=== PATIENT | male | born 1935 | race Caucasian/White ===

== ENCOUNTER → 2023-09-27 09:49 | Outpatient (REF) | payer MEDICARE, OTHER, SELFPAY ==
[2023-09-27 11:50] LABS: % Basophils 0.5 % (0-2); % Eosinophils 3.6 % (0-6); % Immature Granulocytes 0.4 % (0-0.5); % Lymphocytes 28.8 % (20.5-51.1); % Neutrophils 59.7 % (42.2-75.2); Absolute Eosinophils 0.3 10^3/uL (0-0.7); Absolute Lymphocytes 2.3 10^3/uL (1.2-3.4); Absolute Monocytes 0.6 10^3/uL (0.1-0.6); Absolute Neutrophils 4.8 10^3/uL (1.4-6.5); Hematocrit 31.7 % (39.0-52.0); Hemoglobin 10.6 g/dL (13.0-18.0); Mean Corp Hgb Conc. 33.4 g/dL (33.0-37.0); Mean Corpuscular Hgb 30.5 pg (27.0-31.0); Mean Corpuscular Volume 91.1 fL (80.0-94.0); Mean Platelet Volume 10.4 fL (7.4-10.4); Nucleated Red Blood Cells % 0 % (-); Platelet Count 280 10^3/uL (130-400); Red Blood Cell Count 3.48 10^6/uL (4.70-6.10); Red Cell Dist. Width 13.3 % (11.5-14.5); White Blood Cell Count 8.1 10^3/uL (4.8-10.8)
[2023-09-27 12:11] LABS: ALT (SGPT) 43 U/L (0-50); AST (SGOT) 33 U/L (17-59); Albumin 3.8 g/dl (3.5-5.0); Alkaline Phosphatase 118 U/L (38-126); Blood Urea Nitrogen 28 mg/dl (9-20); Carbon Dioxide 23 mmol/L (22-30); Chloride 107 mmol/L (98-107); Glucose 137 mg/dl (70-99); HDL Cholesterol 31 mg/dl; Iron 61 ug/dl (49-181); LDL Cholesterol, Calculated 42 mg/dl; Potassium 4.7 mmol/L (3.5-5.1); Sodium 139 mmol/L (135-145); Total Bilirubin 0.5 mg/dl (0.2-1.3); Total Cholesterol 103 mg/dl (50-199); Total Protein 6.6 g/dl (6.3-8.2); Triglyceride 150 mg/dl (10-149); Very Low Density Lipoprotein 30 mg/dl (0-30); eGFR 58.53
[2023-09-27 12:20] LABS: Percent Saturation 20 % (20-50); Total Iron Binding Capacity 295 ug/dl (261-462)
[2023-09-27 12:43] LABS: Ferritin 82.1 ng/ml (17.9-464.0)
== END ==
LOC: HWLAB 09:49
PROVIDERS: ATTENDING PHYSICIAN Internal Medicine Cardiovascular Disease; FAMILY PHYSICIAN Internal Medicine
DX: I25.10 Atherosclerotic heart disease of native coronary artery without angina pectoris (principal); N18.32 Chronic kidney disease, stage 3b; E78.49 Other hyperlipidemia; E11.22 Type 2 diabetes mellitus with diabetic chronic kidney disease
CPT/HCPCS: 36415; 80053; 80061; 82728; 83036; 83540; 83550; 85025

== ENCOUNTER → 2024-02-06 10:13 | Outpatient (REF) | payer MEDICARE, OTHER, SELFPAY ==
[2024-02-06 12:09] LABS: % Basophils 0.7 % (0-2); % Eosinophils 5.2 % (0-6); % Immature Granulocytes 0.2 % (0-0.5); % Lymphocytes 25.7 % (20.5-51.1); % Monocytes 6.6 % (1.7-9.3); % Neutrophils 61.6 % (42.2-75.2); Absolute Basophils 0.1 10^3/uL (0-0.2); Absolute Eosinophils 0.5 10^3/uL (0-0.7); Absolute Lymphocytes 2.3 10^3/uL (1.2-3.4); Absolute Monocytes 0.6 10^3/uL (0.1-0.6); Absolute Neutrophils 5.6 10^3/uL (1.4-6.5); Hemoglobin 10.3 g/dL (13.0-18.0); Mean Corp Hgb Conc. 33.2 g/dL (33.0-37.0); Mean Corpuscular Hgb 30.5 pg (27.0-31.0); Mean Corpuscular Volume 91.7 fL (80.0-94.0); Mean Platelet Volume 11.1 fL (7.4-10.4); Nucleated Red Blood Cells % 0 % (-); Platelet Count 273 10^3/uL (130-400); Red Blood Cell Count 3.38 10^6/uL (4.70-6.10); Red Cell Dist. Width 13.1 % (11.5-14.5); White Blood Cell Count 9.1 10^3/uL (4.8-10.8)
[2024-02-06 12:41] LABS: Glycohemoglobin (HgbA1c) 6.6 % (4.0-5.6)
[2024-02-06 13:13] LABS: ALT (SGPT) 20 U/L (0-50); AST (SGOT) 24 U/L (17-59); Albumin 3.9 g/dl (3.5-5.0); Alkaline Phosphatase 127 U/L (38-126); Blood Urea Nitrogen 43 mg/dl (9-20); Calcium 9.3 mg/dl (8.4-10.2); Carbon Dioxide 19 mmol/L (22-30); Chloride 110 mmol/L (98-107); Glucose 133 mg/dl (70-99); Potassium 5.7 mmol/L (3.5-5.1); Sodium 136 mmol/L (135-145); Total Bilirubin 0.6 mg/dl (0.2-1.3); Total Protein 6.4 g/dl (6.3-8.2); eGFR 48.34
[2024-02-06 14:42] LABS: Microalbumin, Random Urine 0.8 mg/dl (0.6-1.7); Microalbumin/creatinine Ratio 8.3 mg/g
== END ==
LOC: HWLAB 10:13
PROVIDERS: ATTENDING PHYSICIAN Internal Medicine
DX: I25.10 Atherosclerotic heart disease of native coronary artery without angina pectoris (principal); E11.22 Type 2 diabetes mellitus with diabetic chronic kidney disease; N18.32 Chronic kidney disease, stage 3b; D64.9 Anemia, unspecified
CPT/HCPCS: 36415; 80053; 82043; 82570; 83036; 85025

== ENCOUNTER → 2024-02-17 11:30 | Outpatient (REF) | payer MEDICARE, OTHER, SELFPAY ==
[2024-02-17 17:03] LABS: Blood Urea Nitrogen 43 mg/dl (9-20); Calcium 9.3 mg/dl (8.4-10.2); Carbon Dioxide 20 mmol/L (22-30); Chloride 107 mmol/L (98-107); Glucose 150 mg/dl (70-99); Potassium 5.5 mmol/L (3.5-5.1); Sodium 136 mmol/L (135-145)
== END ==
LOC: HWLAB 11:30
PROVIDERS: ATTENDING PHYSICIAN Internal Medicine
DX: E87.5 Hyperkalemia (principal)
CPT/HCPCS: 36415; 80048

== ENCOUNTER → 2024-03-17 12:02 | Outpatient (REF) | payer MEDICARE, OTHER, SELFPAY ==
[2024-03-17 16:51] LABS: Blood Urea Nitrogen 43 mg/dl (9-20); Calcium 9.4 mg/dl (8.4-10.2); Carbon Dioxide 20 mmol/L (22-30); Chloride 107 mmol/L (98-107); Glucose 122 mg/dl (70-99); Potassium 5.1 mmol/L (3.5-5.1); Sodium 140 mmol/L (135-145); eGFR 52.84
== END ==
LOC: HWLAB 12:02
PROVIDERS: ATTENDING PHYSICIAN Internal Medicine; REFERRING PHYSICIAN Internal Medicine Cardiovascular Disease
DX: E87.5 Hyperkalemia (principal)
CPT/HCPCS: 36415; 80048

== ENCOUNTER → 2024-06-16 07:39 | Outpatient (REF) | payer MEDICARE, OTHER, SELFPAY | LOC: RAD 07:39 | PROVIDERS: ATTENDING PHYSICIAN Podiatrist; FAMILY PHYSICIAN Internal Medicine | DX: E11.9 Type 2 diabetes mellitus without complications (principal); E11.42 Type 2 diabetes mellitus with diabetic polyneuropathy; I70.91 Generalized atherosclerosis; I87.2 Venous insufficiency (chronic) (peripheral); R25.2 Cramp and spasm | CPT/HCPCS: 93922 ==

== ENCOUNTER → 2024-07-22 14:46 | Outpatient (REF) | payer MEDICARE, OTHER, SELFPAY | LOC: HWRAD 14:46 | PROVIDERS: ATTENDING PHYSICIAN Internal Medicine | DX: R29.898 Other symptoms and signs involving the musculoskeletal system (principal) | CPT/HCPCS: 72100 ==

== ENCOUNTER → 2024-08-05 09:33 | Outpatient (REF) | payer MEDICARE, OTHER, SELFPAY ==
[2024-08-05 11:13] LABS: % Basophils 0.5 % (0-2); % Eosinophils 6.9 % (0-6); % Immature Granulocytes 0.2 % (0-0.5); % Lymphocytes 36.8 % (20.5-51.1); % Monocytes 7.9 % (1.7-9.3); % Neutrophils 47.7 % (42.2-75.2); Absolute Eosinophils 0.6 10^3/uL (0-0.7); Absolute Lymphocytes 3.2 10^3/uL (1.2-3.4); Absolute Monocytes 0.7 10^3/uL (0.1-0.6); Absolute Neutrophils 4.1 10^3/uL (1.4-6.5); Hematocrit 34.2 % (39.0-52.0); Mean Corp Hgb Conc. 32.2 g/dL (33.0-37.0); Mean Corpuscular Hgb 30.4 pg (27.0-31.0); Mean Corpuscular Volume 94.5 fL (80.0-94.0); Mean Platelet Volume 10.7 fL (7.4-10.4); Nucleated Red Blood Cells % 0 % (-); Platelet Count 238 10^3/uL (130-400); Red Blood Cell Count 3.62 10^6/uL (4.70-6.10); White Blood Cell Count 8.7 10^3/uL (4.8-10.8)
[2024-08-05 11:51] LABS: ALT (SGPT) 16 U/L (0-50); AST (SGOT) 22 U/L (17-59); Albumin 4.2 g/dl (3.5-5.0); Alkaline Phosphatase 116 U/L (38-126); Blood Urea Nitrogen 37 mg/dl (9-20); Calcium 8.9 mg/dl (8.4-10.2); Carbon Dioxide 22 mmol/L (22-30); Chloride 106 mmol/L (98-107); Creatine Phosphokinase 47 U/L (55-170); Glucose 113 mg/dl (70-99); Potassium 5.5 mmol/L (3.5-5.1); Sodium 139 mmol/L (135-145); Total Bilirubin 0.6 mg/dl (0.2-1.3); Total Protein 6.9 g/dl (6.3-8.2); eGFR 41.19
[2024-08-05 12:05] LABS: Glycohemoglobin (HgbA1c) 6.5 % (4.0-5.6)
[2024-08-07 18:59] LABS: Aldolase 3.7 U/L (1.2-7.6)
== END ==
LOC: HWLAB 09:33
PROVIDERS: ATTENDING PHYSICIAN Internal Medicine
DX: I25.10 Atherosclerotic heart disease of native coronary artery without angina pectoris (principal); E11.22 Type 2 diabetes mellitus with diabetic chronic kidney disease; N18.32 Chronic kidney disease, stage 3b; D64.9 Anemia, unspecified; R29.898 Other symptoms and signs involving the musculoskeletal system
CPT/HCPCS: 36415; 80053; 82085; 82550; 83036; 85025

== ENCOUNTER → 2024-08-19 11:30 | Outpatient (REF) | payer MEDICARE, OTHER, SELFPAY ==
[2024-08-19 17:07] LABS: Potassium 5.6 mmol/L (3.5-5.1)
== END ==
LOC: HWLAB 11:30
PROVIDERS: ATTENDING PHYSICIAN Internal Medicine
DX: E87.5 Hyperkalemia (principal)
CPT/HCPCS: 36415; 84132

== ENCOUNTER → 2024-08-24 14:38 | Outpatient (REF) | payer MEDICARE, OTHER, SELFPAY | LOC: MRI 3T 14:38 | PROVIDERS: ATTENDING PHYSICIAN Physical Medicine & Rehabilitation; FAMILY PHYSICIAN Internal Medicine | DX: M54.16 Radiculopathy, lumbar region (principal) | CPT/HCPCS: 72148 ==

== ENCOUNTER → 2024-09-11 10:42 | Outpatient (REF) | payer MEDICARE, OTHER, SELFPAY ==
[2024-09-11 16:02] LABS: Blood Urea Nitrogen 30 mg/dl (9-20); Calcium 9.3 mg/dl (8.4-10.2); Carbon Dioxide 26 mmol/L (22-30); Chloride 104 mmol/L (98-107); Glucose 143 mg/dl (70-99); Potassium 4.8 mmol/L (3.5-5.1); Sodium 137 mmol/L (135-145); eGFR 48.34
== END ==
LOC: HWLAB 10:42
PROVIDERS: ATTENDING PHYSICIAN Internal Medicine
DX: E87.5 Hyperkalemia (principal)
CPT/HCPCS: 36415; 80048

== ENCOUNTER → 2024-10-06 11:09 | Outpatient (REF) | payer MEDICARE, OTHER, SELFPAY ==
[2024-10-06 13:13] LABS: Blood Urea Nitrogen 35 mg/dl (9-20); Calcium 9.3 mg/dl (8.4-10.2); Carbon Dioxide 25 mmol/L (22-30); Chloride 107 mmol/L (98-107); Glucose 165 mg/dl (70-99); Sodium 143 mmol/L (135-145); eGFR 48.04
== END ==
LOC: HWLAB 11:09
PROVIDERS: ATTENDING PHYSICIAN Internal Medicine
DX: I10 Essential (primary) hypertension (principal)
CPT/HCPCS: 36415; 80048

== ENCOUNTER → 2024-12-21 13:20 | Outpatient (REF) | payer MEDICARE, OTHER, SELFPAY | LOC: RCS 13:20 | PROVIDERS: ATTENDING PHYSICIAN Internal Medicine Cardiovascular Disease; FAMILY PHYSICIAN Internal Medicine | DX: I25.10 Atherosclerotic heart disease of native coronary artery without angina pectoris (principal); R00.1 Bradycardia, unspecified | CPT/HCPCS: 93225; 93226 ==

== ENCOUNTER → 2025-01-18 10:46 | Outpatient (REF) | payer MEDICARE, OTHER, SELFPAY ==
[2025-01-18 15:26] LABS: Hematocrit 36.4 % (39.0-52.0); Hemoglobin 12.1 g/dL (13.0-18.0); Mean Corp Hgb Conc. 33.2 g/dL (33.0-37.0); Mean Corpuscular Volume 90.8 fL (80.0-94.0); Nucleated Red Blood Cells % 0 % (-); Platelet Count 222 10^3/uL (130-400); Red Cell Dist. Width 14.1 % (11.5-14.5)
[2025-01-18 15:31] LABS: ALT (SGPT) 20 U/L (0-50); AST (SGOT) 22 U/L (17-59); Albumin 4.3 g/dl (3.5-5.0); Alkaline Phosphatase 106 U/L (38-126); Blood Urea Nitrogen 34 mg/dl (9-20); Calcium 9.1 mg/dl (8.4-10.2); Carbon Dioxide 22 mmol/L (22-30); Chloride 107 mmol/L (98-107); Glucose 138 mg/dl (70-99); HDL Cholesterol 40 mg/dl; LDL Cholesterol, Calculated 70 mg/dl; Potassium 4.6 mmol/L (3.5-5.1); Sodium 137 mmol/L (135-145); Total Protein 7.0 g/dl (6.3-8.2); Very Low Density Lipoprotein 35 mg/dl (0-30); eGFR 57.81
[2025-01-18 15:40] LABS: Microalb - Urine Creatinine 89.100 mg/dl
[2025-01-18 15:46] LABS: Microalbumin, Random Urine 8.1 mg/dl (0.6-1.7)
[2025-01-19 08:25] LABS: Glycohemoglobin (HgbA1c) 7.2 % (4.0-5.6)
== END ==
LOC: HWLAB 10:46
PROVIDERS: ATTENDING PHYSICIAN Internal Medicine
DX: I25.10 Atherosclerotic heart disease of native coronary artery without angina pectoris (principal); E11.22 Type 2 diabetes mellitus with diabetic chronic kidney disease; N18.32 Chronic kidney disease, stage 3b; D64.9 Anemia, unspecified; Z68.30 Body mass index [BMI] 30.0-30.9, adult; E78.2 Mixed hyperlipidemia; I10 Essential (primary) hypertension
CPT/HCPCS: 36415; 80053; 80061; 82043; 82570; 83036; 85025

== ENCOUNTER → 2025-01-25 07:48 | Outpatient (REF) | payer MEDICARE, OTHER, SELFPAY ==
[2025-01-25 10:23] LABS: C-Reactive Protein < 5.00 mg/L (0.0-10.00)
[2025-01-28 23:53] LABS: Calprotectin, Fecal 368 ug/g (<=49)
== END ==
LOC: REG 07:48
PROVIDERS: ATTENDING PHYSICIAN Internal Medicine Gastroenterology; FAMILY PHYSICIAN Family Medicine
DX: B99.9 Unspecified infectious disease (principal); A09 Infectious gastroenteritis and colitis, unspecified
CPT/HCPCS: 36415; 83993; 86140; 87045; 87046; 87324; 87328; 87329; 87427; 87449; 89055

== ENCOUNTER 2025-03-05 17:47 | Inpatient (IN) | payer MEDICARE, OTHER, SELFPAY ==
[2025-03-05 12:29] VITALS: BP 145/67
--- NOTE | 2025-03-05 14:34 | ED.GENMED ---
History of Present Illness
General
Chief Complaint: Skin Problem
Source: patient and family
Exam Limitations: none
Time Seen by Provider: 03/05/25 14:17
Nursing documentation reviewed up to this point in time: agreed with
History of Present Illness
History of Present Illness:
Note:
CHIEF COMPLAINT(S)
Persistent illness with vomiting and suspected cellulitis.
HISTORY OF PRESENT ILLNESS
The patient is an 89-year-old male who began experiencing symptoms of an illness approximately three days ago, which included vomiting a few nights ago. The patient did not feel well subsequently. His condition was visually documented by a family
member, who is a Physician Lithographic Printing Machinist, and they advised that he seek medical attention. The patient presented with a fever, recorded at 101.3�F this morning at the doctors office. He also experienced chills. There is a noted history of a form of
colitis, for which he is undergoing treatment with what was described as 'Foodishol.'
ADDITIONAL HISTORY OBTAINED FROM SOURCES OTHER THAN THE PATIENT
The patient�s daughter reported that a family member, who is a Physician Lithographic Printing Machinist, observed the patients condition and recommended medical assessment. She also provided information regarding his recent symptoms and fever.
SOCIAL HISTORY
The patient is with his and daughter.
MEDICATIONS
The patient is currently on medication for a form of colitis.
ALLERGIES
The patient has no known allergies.
PHYSICAL EXAM
General: Alert, no acute distress.
Skin: Warm, dry.
Head: Normocephalic, atraumatic.
Neck: Supple, trachea midline.
Eye, Ears, Nose, and Throat: Oral mucosa moist.
Cardiovascular: Normal peripheral perfusion, No edema.
Respiratory: Respirations are non-labored.
Gastrointestinal: Abdomen nondistended
Back: Normal range of motion, Normal alignment.
Musculoskeletal: Normal range of motion, normal strength.
Neurological: Alert and oriented to person, place, time, and situation, No focal neurological deficit observed.
Psychiatric: Cooperative, appropriate mood & affect.
Skin: LLE cellulitis, normal pulses
PROBLEM LIST
Acute: Vomiting, fever, cellulitis.
Chronic: Form of colitis.
PLAN
1. Evaluation with ultrasound to rule out blood clot presence.
2. Perform blood tests and cultures to identify any infection.
3. Administer intravenous antibiotics due to fever and possible ongoing infection.
4. Hospital admission for further management and observation.
DIFFERENTIAL DIAGNOSIS
The Differential Diagnosis includes, in no particular order and is not limited to:
1. Viral or bacterial cellulitis
2. Non-specific viral gastroenteritis
3. Medication-induced gastritis or colitis
4. Bacterial colitis
5. Clostridioides difficile infection
6. Urinary tract infection
7. Community-acquired pneumonia
8. Pulmonary embolism
9. Sepsis
10. Dehydration-related illness
CARE-UPDATE
03/05/25 - 18:43
The patient, an 8-1-feix-old male, continues to present with left lower leg cellulitis and fever. Laboratory findings show leukocytosis. The patient has been administered IV macamycin and admitted to the hospital for further management. Close
monitoring for response to IV antibiotics and any signs of progression or complications is advised.
Disposition:
SUMMARY OF ENCOUNTER
The patient, an 89-year-old male, presented to the emergency department with symptoms of fever and suspected cellulitis in the left lower leg. He was experiencing persistent illness and vomiting over the past few days. The patient was managed with
intravenous antibiotics, specifically vancomycin, due to fever and ongoing infection. Given the patients age and symptoms, hospitalization was deemed necessary for further management and observation.
DISPOSITION
Admit
ASSESSMENT
Suspected cellulitis of the left lower leg with leukocytosis, requiring intravenous antibiotics and hospital admission for further observation and management.
EMERGENCY TREATMENTS ADMINISTERED
Intravenous vancomycin was administered to the patient due to evidence of infection and the presence of leukocytosis.
PLAN
1. Continue intravenous antibiotics to address infection.
2. Monitor vital signs and symptoms closely to evaluate response to treatment.
3. Evaluate further through hospital admission for observation and additional testing as needed for comprehensive care.
INDEPENDENT REVIEW OF LABS AND INTERPRETATION OF TESTS
My independent review of CBC indicates leukocytosis.
MEDICATION RECONCILIATION
Administered intravenous vancomycin.
MEDICAL DECISION MAKING
- Number and Complexity of Problems Addressed: Chronic conditions affecting care include a form of colitis. Differential diagnosis included viral or bacterial cellulitis, non-specific viral gastroenteritis, medication-induced gastritis or colitis,
bacterial colitis, Clostridioides difficile infection, urinary tract infection, community-acquired pneumonia, pulmonary embolism, sepsis, and dehydration-related illness.
- Data:
Category 1: Laboratory tests ordered included CBC showing leukocytosis.
Category 2: Clinical information obtained from an independent historian, including family input from a Physician Lithographic Printing Machinist relative.
- Risk: Decided on hospital admission due to the risk of complications and morbidity from suspected cellulitis and ongoing infection.
DIAGNOSIS
1. Cellulitis, left lower leg (L03.116)
2. Leukocytosis (D72.829)
Past History
Past History
ED Past Medical History: HTN
ED Past Surgical History: None
Social History
Tobacco: Non-smoker
Alcohol: None
Phy Exam
Physical Exam
Physical Exam:
.
Course
Orders/Labs/Results
Orders:
Orders
03/05/25 14:31
IV Insert/Care/Rem.- Treatment PRN
03/05/25 14:35
US Periph Venous LOWER Ext LT Urgent
Comment:
Reason For Exam: left leg swelling, cellulitis
03/05/25 Dinner
2000 calorie (17 carb) Diabetic
At Your Request: Full Participation
Does patient need a safe tray?: No
03/05/25 15:32
Complete Blood Count/With Diff Urgent
Lactic Acid Q4H
Comment: CANCEL 2nd LACTIC ACID IF 1st LACTIC ACID IS LESS THAN 2
Blood Culture Q30M
BETINA Source: Blood/Venous
Specimen Description:
03/05/25 16:03
Vancomycin [Vancocin] 2,000 mg 0.9% Sodium Chloride 500 ml [Nss] 500 ml IV NOW
03/05/25 16:50
Comprehensive Metabolic Panel Urgent
Blood Culture Q30M
BETINA Source: Blood/Venous
Specimen Description:
03/05/25 17:14
ECG [Electrocardiogram (*1)] Urgent
Reason for Study: Fatigue / Weakness
03/05/25 17:16
Admit/Transfer Patient As Directed
Co-Sign Provider:
Level of Care: Inpatient admission
Assign to:: Medical/Surgical
Physician / Group: [facility]
Diagnosis: LLE Cellulitis
Reason for Hospitalization: IV abx
Expected length of stay greater than two midnights?: Yes
ELOS- Estimated Length of Stay in days: 3
I certify the patient meets the requirements for IP care: Yes
03/05/25 17:18
Code Status As Directed
Resuscitation Status: Do not resuscitate
Reached after discussion with pt or family/Healthcare POA: Yes
DNR Bracelet Application ONCE
03/05/25 17:45
0.9% Sodium Chloride 1000 ml [Nss] 1,000 ml IV 80 mls/hr
03/05/25 18:31
Dextrose 50%-Water [Dextrose 50% Syringe] 12.5 grams IV [id number] PRN
Glucagon [GlucaGen] 1 mg IM PRN PRN
Melatonin 10 mg PO HSPRN PRN SLEEP
03/05/25 18:31
WOUND/OSTOMY CONSULT Routine
Reason for Consult: LLE Wound
Bedside Glucose Monitoring As Directed
Frequency: AC&HS
Additional Instructions:: Change to q6h if pt on TPN, tube feeding or not eating
Vital Signs As Directed
Frequency: Per unit guidelines
DX Deep Vein Thrombosis Video Routine
03/05/25 19:00
CeFAZolin 2 GRAM [Ancef] 2 grams in 10 ml IV Q8H
03/05/25 20:00
Tolterodine Tartrate [Detrol] 1 mg PO BID
03/05/25 22:00
Mirtazapine [Remeron] 15 mg PO HS
03/06/25 00:00
Heparin 5,000 units SC Q8
03/06/25 06:00
Basic Metabolic Panel IN AM
Complete Blood Count/No Diff IN AM
Glycohemoglobin (HgbA1c) IN AM
03/06/25 07:30
Insulin Aspart Corrective Low [Novolog Flexpen-Low Resistance] See Protocol SC AC
03/06/25 08:00
Aspirin Low Dose EC [Aspir Low (Enteric Coated)] 81 mg PO DAILY
Atorvastatin [Lipitor] 40 mg PO DAILY
Budesonide [Entocort EC] 3 mg PO DAILY
nifedipine 30 mg PO DAILY
Abnormal Lab Results
03/05/25 03/05/25 03/05/25
15:32 15:37 16:50
WBC 21.0 H 10^3/uL
(4.8-10.8)
RBC 3.79 L 10^6/uL
(4.70-6.10)
Hgb 11.4 L g/dL
(13.0-18.0)
Hct 33.5 L %
(39.0-52.0)
Abs Immat Gran (auto) 0.2 H 10^3/uL
(0-0.05)
Absolute Neuts (auto) 17.7 H 10^3/uL
(1.4-6.5)
Absolute Monos (auto) 1.2 H 10^3/uL
(0.1-0.6)
Immature Gran % 0.8 H %
(0-0.5)
Neutrophils % 83.9 H %
(42.2-75.2)
Lymphocytes % 9.2 L %
(20.5-51.1)
Sodium 132 L mmol/L
(135-145)
BUN 47 H mg/dl
(9-20)
Creatinine 1.7 H mg/dL
(0.7-1.3)
Glucose 198 H mg/dl
(70-99)
POC Glucose 212 H mg/dl
(70-99)
03/05/25 15:32
03/05/25 16:50
Vital Signs
Initial and Last Documented VS:
Initial Vital Signs
Temp Pulse Resp BP Pulse Ox
99.6 F 83 20 145/67 94
03/05/25 12:29 03/05/25 12:29 03/05/25 12:29 03/05/25 12:29 03/05/25 12:29
Last Documented Vital Signs
Temp Pulse Resp BP Pulse Ox
99.1 F 90 12 114/66 96
03/05/25 15:27 03/05/25 16:59 03/05/25 16:59 03/05/25 16:59 03/05/25 16:59
*Pulse Oximetry
SaO2: 94
Oxygen Mode of Delivery: Room air
Patient hypoxic: no
*Critical Care Note
Total Time (30-74mins, 75-104mins- exclusive of procedures): Not Applicable
ED Attending Note
-
Portions of this chart may have been created with voice recognition software.� Occasional wrong word or��sound alike� substitutions may have occurred due to the inherent limitations of voice recognition software.
Discharge Plan
Departure
Patient Disposition: Admit
Date of Disposition: 03/05/25
Time of Disposition: 16:44
Admit to: Med/Surg
Presentation/result/management discussed w/ accepting MD/DO: Hospitalist
Patient with high blood pressure during this ER visit?: No
Condition: Good
Discharge Problem:
Cellulitis of left leg
Interventions
Interventions:
*Risk Screen - Suicide Last Done: 03/05/25 12:29
*General Assessment Last Done: 03/05/25 12:29
*Neglect/Abuse Screening Last Done: 03/05/25 12:29
*ED- Fall Risk Assessment Last Done: 03/05/25 15:22
*ED COVID-19 Vaccine History Last Done: 03/05/25 15:22
ED-Skin Assessment Last Done: 03/05/25 15:22
Discharge Date and Time
Discharge Date/Time: 03/05/25 18:49
[2025-03-05 15:21] VITALS: BMI 29.9
[2025-03-05 15:27] VITALS: BP 133/80
[2025-03-05 15:38] LABS: Glucose - Point of Care 212 mg/dl (70-99)
[2025-03-05 15:41] LABS: Hematocrit 33.5 % (39.0-52.0); Hemoglobin 11.4 g/dL (13.0-18.0); Mean Corp Hgb Conc. 34.0 g/dL (33.0-37.0); Mean Corpuscular Volume 88.4 fL (80.0-94.0); Nucleated Red Blood Cells % 0 % (-); Platelet Count 233 10^3/uL (130-400); Red Cell Dist. Width 13.8 % (11.5-14.5)
[2025-03-05] MEDS: VANCOCIN 540 MG IV (16:53)
[2025-03-05 16:59] VITALS: BP 114/66
--- NOTE | 2025-03-05 17:00 | HPS.HSE ---
Addendum entered and electronically signed by Martita Blake MD 03/05/25 19:33:
This is an addendum to H&P written by Adrianne Hayes on 03/05/2025. �Patient seen and examined independently with PA.
89-year-old male past medical history of CAD, diabetes, hypertension, hyperlipidemia, lymphocytic colitis, insomnia, presenting with bumping his left lower leg 2 weeks ago with abrasion that is progressed to red and swollen and painful. �Today fever
101.
Vital signs normal.
Labs show leukocytosis of 21. �Creatinine of 1.7. �Creatinine of 1.2 in January.
Venous ultrasound shows no evidence of DVT.
Patient with cellulitis of left lower extremity. �Given vancomycin ER. �Switch to cefazolin. �Blood cultures.� Wound care.� Patient also with ANGELIQUE likely prerenal. �Hold HCTZ, metformin. �IV fluids.
Original Note:
Family Physician
-
Family Physician: Gaby Hernandez
Chief Complaint
-
Redness and Swelling of Left Lower Extremity
History of Present Illness
Patient is an 89 y/o male past medical history of CAD, DM, HTN, Lymphocytic Colitis, and Insomnia who presents with increased redness and swelling of the left lower extremity. Patient reports he has very thin/frail skin and he bumped is leg a few
weeks ago causing a wound. Patient reports about 3-4 days ago the leg started getting more red and swollen. HE has been experiencing chills and this morning had a fever of 101F. He was seen by his PCP who sent him to the emergency department for
evaluation. He denies any prior history of cellulitis
Medical History
Past Medical History
Past Medical History: Reports Other
Additional Past Medical History:
Non-Obstructive Coronary Artery Disease
Diabetes Mellitus, Type II
Essential Hypertension
Hyperlipidemia
Lymphocytic Colitis
Overactive Bladder
Insomnia
Past Surgical History: Reports Other
Additional Past Surgical History:
Cholecystectomy
Left Knee Replacement
Social History
Tobacco: Former Smoker (Quit over 30 years ago)
Family History
Family History: Not pertinent
Allergies / Home Medications
Allergies reflects when Allergies were last updated in [facility].
Home Medications with original date entered in [facility]
Allergy/Medication List:
Allergies
Allergy/AdvReac Type Severity Reaction Status Date / Time
No Known Allergies Allergy Verified 03/05/25 12:32
Home Medications
aspirin 81 mg tablet,delayed release 81 mg PO DAILY 10/05/22
atorvastatin 40 mg tablet (Lipitor) 40 mg PO DAILY 10/05/22
melatonin 5 mg tablet 10 mg PO HSPRN PRN SLEEP 10/05/22
metformin 500 mg tablet 1,000 mg PO BID@0800,1700 10/05/22
therapeutic multivitamin 1 tab PO DAILY 10/05/22
budesonide 3 mg capsule,delayed,extended release 3 mg PO DAILY 03/05/25
cholecalciferol (vitamin D3) 125 mcg (5,000 unit) tablet (Vitamin D3) 125 mcg PO DAILY 03/05/25
hydrochlorothiazide 12.5 mg tablet 12.5 mg PO DAILY 03/05/25
magnesium citrate 125 mg capsule 250 mg PO HS 03/05/25
mirtazapine 15 mg tablet 15 mg PO HS 03/05/25
nifedipine 30 mg tablet,extended release 24 hr 30 mg PO DAILY 03/05/25
trospium 20 mg tablet 20 mg PO BID 03/05/25
Review of Systems
-
A 12 point ROS was completed and negative except as noted: Yes
Constitutional: Reports Fever and Chills
Respiratory: Denies Cough or Trouble Breathing
Cardiac: Denies Chest Pain or Palpitations
Abdomen/GI: Denies Abdominal Pain, Nausea, Vomiting or Diarrhea
Physical Exam
Vital Signs
Vital Signs
Temp Pulse Resp BP Pulse Ox
99.1 F 90 12 114/66 96
03/05/25 15:27 03/05/25 16:59 03/05/25 16:59 03/05/25 16:59 03/05/25 16:59
Physical Exam
General: Comfortable and Conversant
HEENT: Anicteric and Moist mucous membranes
Respiratory: Clear and Non Labored Respirations
Cardiac: S1/S2 and Other (Slightly irregular, No tachycardia)
GI: Soft and Non Tender
Musculoskeletal: No Clubbing, No Cyanosis and Edema, Left Lower Extremity
Skin: Warm and Other (Moderate erythema from left forefoot extending to just below the below. I note a pen marking from earlier today and the redness has extended past that line)
Neuro: Awake, Oriented and Nonfocal/grossly intact
Psych: Calm
Laboratory Results
-
03/05/25 15:32
Laboratory Tests
03/05/25 03/05/25
15:32 16:50
Sodium 132 L
Potassium 4.0
Chloride 99
Carbon Dioxide 24
BUN 47 H
Creatinine 1.7 H
Glucose 198 H
Lactic Acid 1.8
Peripheral Vascular Ultrasound:
No sonographic evidence for LEFT lower extremity deep venous thrombosis. Please note the peroneal and distal posterior tibial veins were not well visualized.
Data Reviewed
-
Lab Data: Labs Reviewed by me
Impression/Plan
-
Sepsis secondary Left Lower Extremity Cellulitis
-Continue Ancef
-Consult Wound Care
Acute Kidney Injury
-Hold HCTZ and Metformin
-Give IVFs overnight
-Recheck creatinine in AM
Hyponatremia, mild
-HCTZ on hold
-Recheck sodium in AM
Non-Obstructive Coronary Artery Disease
-Continue aspirin
Diabetes Mellitus, Type II
-Metformin on hold
-Monitor sugars and continue coverage insulin
Essential Hypertension
-HCTZ on hold
-Continue nifedipine
Hyperlipidemia
-Continue atorvastatin
Lymphocytic Colitis
-Continue budesonide
Insomnia
-Continue mirtazapine, and melatonin
DVT proph: SC Heparin
Code Status: DNR
[2025-03-05 17:24] LABS: ALT (SGPT) 23 U/L (0-50); AST (SGOT) 22 U/L (17-59); Albumin 4.1 g/dl (3.5-5.0); Alkaline Phosphatase 92 U/L (38-126); Blood Urea Nitrogen 47 mg/dl (9-20); Calcium 9.1 mg/dl (8.4-10.2); Carbon Dioxide 24 mmol/L (22-30); Chloride 99 mmol/L (98-107); Estimated Creatinine Clearance 32 ml/min; Glucose 198 mg/dl (70-99); Potassium 4.0 mmol/L (3.5-5.1); Sodium 132 mmol/L (135-145); Total Protein 6.7 g/dl (6.3-8.2); eGFR 38.06
[2025-03-05] MEDS: NSS 1000 IV (18:08)
[2025-03-05 18:45] VITALS: BP 128/84
--- NOTE | 2025-03-05 19:09 | PTCARENOTE ---
pt admitted at change of shift. here for LE cellulitis. AOx3. LCTA RA, cont b&B. +BSx4. +1 edmea and redness LLE, warm to the touch. +PP b/l. CB in reach.. IVF, and vanco. Family at bedside. admission completed, family in agreement with POC.
[2025-03-05] MEDS: ANCEF 10 IV (19:58)
[2025-03-05] MEDS: DETROL 1 MG PO (20:21)
[2025-03-05] MEDS: REMERON 15 MG PO (21:46)
[2025-03-05 23:00] VITALS: BP 132/71
[2025-03-05] MEDS: HEPARIN 5000 UNITS SC (23:58)
[2025-03-06 00:11] LABS: Glucose - Point of Care 173 mg/dl (70-99)
[2025-03-06 00:30] VITALS: BP 105/51
[2025-03-06] MEDS: ANCEF 10 IV ×3 (03:02→18:30)
--- NOTE | 2025-03-06 03:19 | PTCARENOTE ---
Wound care provided to right lower extremity secondary to soilage of dressing. Edema persists in extremity. Redness appears to be slowly resolving. Skin tear present with skin flap measuring approximately 1.5 inches across. mild weeping of clear /
yellow fluid present near wound site. Patient continues to deny pain requiring intervention at this time.
[2025-03-06 03:25] VITALS: BP 129/71
[2025-03-06 07:50] VITALS: BP 136/88
[2025-03-06 07:56] LABS: Hematocrit 31.8 % (39.0-52.0); Hemoglobin 10.7 g/dL (13.0-18.0); Mean Corp Hgb Conc. 33.6 g/dL (33.0-37.0); Mean Corpuscular Volume 89.6 fL (80.0-94.0); Platelet Count 214 10^3/uL (130-400); Red Cell Dist. Width 13.6 % (11.5-14.5)
[2025-03-06 08:27] LABS: Blood Urea Nitrogen 40 mg/dl (9-20); Calcium 8.6 mg/dl (8.4-10.2); Carbon Dioxide 21 mmol/L (22-30); Chloride 105 mmol/L (98-107); Estimated Creatinine Clearance 39 ml/min; Glucose 146 mg/dl (70-99); Potassium 3.8 mmol/L (3.5-5.1); Sodium 134 mmol/L (135-145); eGFR 48.04
[2025-03-06 09:00] LABS: Glucose - Point of Care 152 mg/dl (70-99)
[2025-03-06] MEDS: DETROL 1 MG PO ×2 (09:02→19:44)
[2025-03-06] MEDS: PROCARDIA XL (EXTENDED RELEASE) 30 MG PO (09:02)
[2025-03-06] MEDS: ASPIR LOW (ENTERIC COATED) 81 MG PO (09:02)
[2025-03-06] MEDS: ENTOCORT EC 3 MG PO (09:02)
[2025-03-06] MEDS: LIPITOR 40 MG PO (09:02)
[2025-03-06] MEDS: HEPARIN 5000 UNITS SC ×2 (09:03→17:28)
[2025-03-06] MEDS: NSS 1000 IV ×2 (09:06→19:40)
--- NOTE | 2025-03-06 10:37 | W.PN.HOSP.TC ---
Today's Communication/Plan
-
IV AB
can stop ivf once this bag runs out
milo bandage for LE
Assessment / Plan
Assessment / Plan
89-year-old male with swelling of the left lower extremity. He also had fever and chills. Referred to ER by PCP. Patient stated that he banged his leg a few days ago
Ultrasound-no sonographic evidence of DVT
RIMMA normal 06/16/2024
Patient is awake and alert
Cardiovascular system S1-S2 appreciated
Chest clear to auscultation
Abdomen soft and nontender
Left lower extremity with edema all the way up until the knee, redness and skin break/laceration, mohr area
# Sepsis secondary to left lower extremity cellulitis
Continue Ancef, wound care
Follow blood cultures
White count is coming down
Milo bandages/compression therapy to the left leg
# Acute kidney injury on CKD stage III
Stop IV fluids and watch creatinine
Hold metformin and hydrochlorothiazide
Follow creatinine
# Hyponatremia-hold HCTZ, follow sodium. If not getting better will get serum and urine osmolality studies. Sodium is improving
# History of coronary artery ffgbknd-icpushzejewbhh-nbtzjrne aspirin, statin
# Diabetes-type II-hemoglobin [id number]
Hold metformin. Accu-Cheks and sliding scale coverage
# Hypertension-continue nifedipine. Hold HCTZ
# Hyperlipidemia-continue atorvastatin
# Lymphocytic colitis-continue budesonide
# Insomnia-continue melatonin mirtazapine
# Spinal canal stenosis and moderate right foraminal stenosis L3-L4 and L4-L5 anterolisthesis L5 on S1
# DVT prophylaxis-subcutaneous heparin
# DNR status
Part of this note was created using voice recognition system. Occasional wrong word or��sound alike� substitutions may have inadvertently occurred due to the inherent limitations of voice recognition software. If noted kindly bring it to my
attention for correction.
Anticipated Discharge: 24 - 48 hours
Subjective/Interval History
-
Date of Service: March 06, 2025
Objective Data
-
Labs:
Laboratory Results
03/06/25
07:37
WBC 13.7 H
Hgb 10.7 L
Hct 31.8 L
Plt Count 214
Sodium 134 L
Potassium 3.8
Chloride 105
Carbon Dioxide 21 L
BUN 40 H
Creatinine 1.4 H
Glucose 146 H
Calcium 8.6
Vital Signs:
Vital Signs
Temp Pulse Resp BP Pulse Ox
97.8 F 128 17 136/88 97
03/06/25 07:50 03/06/25 07:50 03/06/25 07:50 03/06/25 07:50 03/06/25 07:50
[2025-03-06 10:52] LABS: Glycohemoglobin (HgbA1c) 7.3 % (4.0-5.6)
[2025-03-06] MEDS: NOVOLOG FLEXPEN-LOW RESISTANCE 1 UNITS SC (11:00)
[2025-03-06 12:01] LABS: Glucose - Point of Care 212 mg/dl (70-99)
[2025-03-06] MEDS: NOVOLOG FLEXPEN-LOW RESISTANCE 2 UNITS SC ×2 (14:14→17:28)
[2025-03-06 15:32] VITALS: BP 115/65
--- NOTE | 2025-03-06 16:07 | CM ---
Patient seen at bedside with & daughter
IA completed
Lives in condo with with elevator access
PLOF: Independent
Denies DME
Denies VN/Rehab
PCP: Janis Peters
PHARMACY: [facility] mail [facility]
PLAN: anticipate home, when stable, watch for VN needs wound care, CM to continue to follow
[2025-03-06 16:50] LABS: Glucose - Point of Care 241 mg/dl (70-99)
[2025-03-06 21:43] LABS: Glucose - Point of Care 180 mg/dl (70-99)
[2025-03-06] MEDS: REMERON 15 MG PO (22:25)
[2025-03-06 23:30] VITALS: BP 105/51
[2025-03-07] MEDS: HEPARIN 5000 UNITS SC ×4 (00:30→23:44)
[2025-03-07] MEDS: ANCEF 10 IV ×3 (02:58→18:19)
[2025-03-07 07:20] VITALS: BP 139/73
[2025-03-07 07:43] LABS: Glucose - Point of Care 141 mg/dl (70-99)
[2025-03-07] MEDS: NOVOLOG FLEXPEN-LOW RESISTANCE SC (07:45)
[2025-03-07] MEDS: LIPITOR 40 MG PO (08:00)
[2025-03-07] MEDS: ENTOCORT EC 3 MG PO (08:00)
[2025-03-07] MEDS: PROCARDIA XL (EXTENDED RELEASE) 30 MG PO (08:01)
[2025-03-07] MEDS: ASPIR LOW (ENTERIC COATED) 81 MG PO (08:02)
[2025-03-07] MEDS: DETROL 1 MG PO ×2 (08:02→19:38)
[2025-03-07 08:53] LABS: Hematocrit 29.1 % (39.0-52.0); Hemoglobin 9.8 g/dL (13.0-18.0); Mean Corp Hgb Conc. 33.7 g/dL (33.0-37.0); Mean Corpuscular Volume 89.8 fL (80.0-94.0); Platelet Count 227 10^3/uL (130-400); Red Cell Dist. Width 13.2 % (11.5-14.5)
[2025-03-07 09:18] LABS: Blood Urea Nitrogen 28 mg/dl (9-20); Calcium 8.6 mg/dl (8.4-10.2); Carbon Dioxide 22 mmol/L (22-30); Chloride 107 mmol/L (98-107); Estimated Creatinine Clearance 42 ml/min; Glucose 137 mg/dl (70-99); Potassium 3.8 mmol/L (3.5-5.1); Sodium 137 mmol/L (135-145); eGFR 52.51
[2025-03-07 09:56] LABS: Iron 24 ug/dl (49-181)
[2025-03-07 10:05] LABS: Total Iron Binding Capacity 236 ug/dl (261-462)
--- NOTE | 2025-03-07 10:32 | W.PN.HOSP.TC ---
Addendum entered and electronically signed by Janie Rowe MD 03/07/25 15:33:
Repeat hemoglobin stable.
Replace iron
1 set of blood cultures gram-negative bacilli. Wait for identification
Original Note:
Today's Communication/Plan
-
Repeat hemoglobin later today
Possible discharge based on that
Please ambulate the patient
Assessment / Plan
Assessment / Plan
89-year-old male with swelling of the left lower extremity. He also had fever and chills. Referred to ER by PCP. Patient stated that he banged his leg a few days ago to an iron door. He said got
Ultrasound-no sonographic evidence of DVT
RIMMA normal 06/16/2024
Patient is awake and alert
Cardiovascular system S1-S2 appreciated
Chest clear to auscultation
Abdomen soft and nontender
Left lower extremity - skin laceration without any discharge. Redness in the leg much better. Micro skin hemorrhages noted
# Sepsis secondary to left lower extremity cellulitis
Continue Ancef, wound care
blood cultures are negative
White count is coming down
Milo bandages/compression therapy to the left leg
# Acute kidney injury on CKD stage III
Stop IV fluids and watch creatinine
Hold hydrochlorothiazide
restart metformin
# Anemia-iron deficiency noted. Repeat hemoglobin later today. Drop in hemoglobin likely secondary to hemodilution from IV fluids. Patient does have a history of anemia from before. He was advised to follow-up with his PCP for follow-up
# Hyponatremia-hold HCTZ, Hyponatremia resolved
# History of coronary artery wfoxujq-tyajhkityqdavi-ttezhola aspirin, statin
# Diabetes-type II-hemoglobin A1c- 7.3
restart metformin. Accu-Cheks and sliding scale coverage
# Hypertension-continue nifedipine. Hold HCTZ
# Hyperlipidemia-continue atorvastatin
# Lymphocytic colitis-continue budesonide
# Insomnia-continue melatonin mirtazapine
# Spinal canal stenosis and moderate right foraminal stenosis L3-L4 and L4-L5 anterolisthesis L5 on S1
# DVT prophylaxis-subcutaneous heparin
# DNR status
discussed with multiple family members from patient's cell phone
Part of this note was created using voice recognition system. Occasional wrong word or��sound alike� substitutions may have inadvertently occurred due to the inherent limitations of voice recognition software. If noted kindly bring it to my
attention for correction.
Anticipated Discharge: Within 24 hours
Subjective/Interval History
-
Date of Service: March 07, 2025
Objective Data
-
Labs:
Laboratory Results
03/07/25 03/07/25
08:10 15:00
WBC 8.5
Hgb 9.8 L Pending
Hct 29.1 L Pending
Plt Count 227
Sodium 137
Potassium 3.8
Chloride 107
Carbon Dioxide 22
BUN 28 H
Creatinine 1.3
Glucose 137 H
Calcium 8.6
Vital Signs:
Vital Signs
Temp Pulse Resp BP Pulse Ox
97.9 F 102 18 139/73 94
03/07/25 07:20 03/07/25 08:01 03/07/25 07:20 03/07/25 08:01 03/07/25 07:30
I&O
03/06/25 03/07/25 03/08/25
06:59 06:59 06:59
Intake Total 840 / 840
Output Total 1050 / 1050
Balance -210 / -210
[2025-03-07] MEDS: GLUCOPHAGE 1000 MG PO ×2 (10:44→16:07)
[2025-03-07 11:00] LABS: Ferritin 89.3 ng/ml (17.9-464.0)
[2025-03-07] MEDS: MILK OF MAGNESIA 30 ML PO (11:03)
[2025-03-07] MEDS: SENOKOT 17.2 MG PO ×2 (11:03→19:38)
[2025-03-07] MEDS: MIRALAX 17 GRAMS PO (11:03)
[2025-03-07 11:15] LABS: Vitamin B12 302 pg/ml (239-931)
[2025-03-07 12:05] LABS: Glucose - Point of Care 185 mg/dl (70-99)
[2025-03-07] MEDS: NOVOLOG FLEXPEN-LOW RESISTANCE 1 UNITS SC (12:46)
[2025-03-07 15:05] LABS: Hematocrit 31.9 % (39.0-52.0); Hemoglobin 10.9 g/dL (13.0-18.0)
[2025-03-07 15:25] VITALS: BP 141/68
[2025-03-07 16:51] LABS: Glucose - Point of Care 217 mg/dl (70-99)
[2025-03-07 17:04] LABS: Urine Character Clear (Clear)
[2025-03-07 17:11] LABS: Urine Red Blood Cell 0-2 /HPF (0-2); Urine Squamous Cell 0-2 /LPF (Few); Urine White Cell 0-2 /HPF (0-5)
[2025-03-07] MEDS: NOVOLOG FLEXPEN-LOW RESISTANCE 2 UNITS SC (17:11)
--- NOTE | 2025-03-07 19:44 | PTCARENOTE ---
RN called to room by patient. Pt reports hitting R leg on side of bed, now with new skin tear. Wound care performed.
[2025-03-07 21:54] LABS: Glucose - Point of Care 144 mg/dl (70-99)
[2025-03-07] MEDS: REMERON 15 MG PO (22:15)
[2025-03-07 23:07] VITALS: BP 133/73
[2025-03-08] MEDS: ANCEF 10 IV (03:57)
[2025-03-08 07:11] LABS: Hematocrit 28.2 % (39.0-52.0); Hemoglobin 9.6 g/dL (13.0-18.0); Mean Corp Hgb Conc. 34.0 g/dL (33.0-37.0); Mean Corpuscular Volume 88.4 fL (80.0-94.0); Platelet Count 238 10^3/uL (130-400); Red Cell Dist. Width 13.2 % (11.5-14.5)
[2025-03-08 07:20] VITALS: BP 154/76
[2025-03-08] MEDS: ASPIR LOW (ENTERIC COATED) 81 MG PO (07:27)
[2025-03-08] MEDS: GLUCOPHAGE 1000 MG PO ×2 (07:27→16:13)
[2025-03-08] MEDS: LIPITOR 40 MG PO (07:27)
[2025-03-08] MEDS: DETROL 1 MG PO ×2 (07:28→21:13)
[2025-03-08] MEDS: PROCARDIA XL (EXTENDED RELEASE) 30 MG PO (07:28)
[2025-03-08] MEDS: VITAMIN B-12 1000 MCG PO (07:28)
[2025-03-08] MEDS: ENTOCORT EC 3 MG PO (07:29)
[2025-03-08] MEDS: HEPARIN 5000 UNITS SC ×3 (07:29→23:36)
[2025-03-08 07:37] LABS: Blood Urea Nitrogen 28 mg/dl (9-20); Calcium 8.6 mg/dl (8.4-10.2); Carbon Dioxide 22 mmol/L (22-30); Chloride 107 mmol/L (98-107); Estimated Creatinine Clearance 42 ml/min; Glucose 132 mg/dl (70-99); Potassium 4.0 mmol/L (3.5-5.1); Sodium 136 mmol/L (135-145); eGFR 52.51
--- NOTE | 2025-03-08 07:43 | W.PN.HOSP.TC ---
Today's Communication/Plan
-
1 set of blood cultures positive for gram-negative bacilli, which could be a contaminant. Awaiting another set of blood cultures.
Switched from Ancef to Unasyn for better anaerobic coverage.
Added 2 units insulin aspart with meals, as patient had glucose 216 this morning.
Assessment / Plan
Assessment / Plan
89-year-old male with a PMH notable for DM, HTN, CAD, HLD, and lymphocytic colitis, who presented with erythematous swelling of the left lower extremity after hitting it on an iron door a few days prior. He also had fever and chills. Referred to
ER by PCP. Ultrasound demonstrated no evidence of DVT. RIMMA normal 06/16/2024.
A set of blood cultures positive for gram-negative bacilli, which could be a contaminant. Awaiting another set of blood cultures. Switched antibiotic from cefazolin to ampicillin sulbactam for better anaerobic coverage.
Patient is awake and alert
Cardiovascular system S1-S2 appreciated
Chest clear to auscultation
Abdomen soft and nontender
Left lower extremity - skin laceration without any discharge. Redness in the leg much better. Micro skin hemorrhages noted
# Sepsis secondary to left lower extremity cellulitis
Switched from cefazolin to ampicillin per sulbactam for better anaerobic coverage
1 set of blood cultures positive for gram-negative bacilli, which could be a contaminant. Awaiting another set of blood cultures
WBC continuing to downtrend
Milo bandages/compression therapy to the left leg
# Acute kidney injury on CKD stage III
Resolved. Restarted metformin
Hold hydrochlorothiazide
# Anemia-iron deficiency noted. Repeat hemoglobin later today. Drop in hemoglobin likely secondary to hemodilution from IV fluids. Patient does have a history of anemia. He was advised to follow-up with his PCP
# Hyponatremia-hold HCTZ, resolved
# History of coronary artery xlkcjqv-gqkkumizhimahq-cuyyctaj aspirin, statin
# Diabetes-type II-hemoglobin A1c- 7.3
- restart metformin. Accu-Cheks and sliding scale coverage
*- will be discharged with Contour Next Gen test strips and Microlet lancets
# Hypertension-continue nifedipine. Hold HCTZ
# Hyperlipidemia-continue atorvastatin
# Lymphocytic colitis-continue budesonide
# Insomnia-continue melatonin mirtazapine
# Spinal canal stenosis and moderate right foraminal stenosis L3-L4 and L4-L5 anterolisthesis L5 on S1
# DVT prophylaxis-subcutaneous heparin
# DNR status
Part of this note was created using voice recognition system. Occasional wrong word or��sound alike� substitutions may have inadvertently occurred due to the inherent limitations of voice recognition software. If noted kindly bring it to my
attention for correction.
Anticipated Discharge: Within 24 hours
Subjective/Interval History
-
Date of Service: March 08, 2025
Hit lateral right knee on bed railing when trying to get out of bed last night. Lateral right knee blood (on heparin and aspirin) and was bandaged.
Blood glucose 216 this morning. Takes home metformin. Will give 2 units insulin aspart with meals as needed.
Objective Data
-
Labs:
Laboratory Results
03/08/25
06:49
WBC 6.7
Hgb 9.6 L
Hct 28.2 L
Plt Count 238
Sodium 136
Potassium 4.0
Chloride 107
Carbon Dioxide 22
BUN 28 H
Creatinine 1.3
Glucose 132 H
Calcium 8.6
Vital Signs:
Vital Signs
Temp Pulse Resp BP Pulse Ox
98.3 F 81 16 154/76 95
03/08/25 07:20 03/08/25 07:28 03/08/25 07:20 03/08/25 07:28 03/08/25 07:20
I&O
03/07/25 03/08/25 03/09/25
06:59 06:59 06:59
Intake Total 840 / 840 1600 / 1600
Output Total 1050 / 1050 375 / 375
Balance -210 / -210 1225 / 1225
Review of Systems
-
History Source: Patient
Constitutional: Reports No Symptoms (No fevers or chills)
EENT: Reports No Symptoms Reported
Respiratory: Reports No Symptoms
Cardiac: Reports No Symptoms
Abdomen/GI: Reports No Symptoms
Skin: Reports No Symptoms
Neuro: Reports No Symptoms
Physical Exam
-
General: Well Developed, Well Nourished, No Apparent Distress and Comfortable
HEENT: Normocephalic and Atraumatic
Respiratory: Clear to Auscultation
Cardiac: Regular Rhythm
GI: Soft, Nontender, Nondistended and Normal Bowel Sounds
Skin: Other (Left calf and foot wrapped, erythematous, with a few bruises)
Neuro: Awake, Alert and Oriented
Data Reviewed
-
Total Time Spent with Patient (in minutes): 25
Diagnostic Radiology: Report Reviewed by me
Labs: Labs Reviewed by me
[2025-03-08 08:15] LABS: Glucose - Point of Care 216 mg/dl (70-99)
[2025-03-08] MEDS: SENOKOT PO (08:20)
[2025-03-08] MEDS: MIRALAX PO (08:20)
[2025-03-08] MEDS: NOVOLOG FLEXPEN-LOW RESISTANCE 2 UNITS SC (08:25)
[2025-03-08] MEDS: UNASYN IV ×3 (10:20→21:45)
[2025-03-08 10:37] LABS: Hematocrit 29.6 % (39.0-52.0); Hemoglobin 10.1 g/dL (13.0-18.0)
--- NOTE | 2025-03-08 11:40 | PTCARENOTE ---
03/08/2025 DIABETES EDUCATION CONSULT
I met with Jose Juan to review diabetes management, he is inpatient with sepsis 2/2 LLE cellulitis.
We reviewed that he is new to insulin, as his BS has been 144-241 while inpatient. He states he had prediabetes, his last HbA1c was 6/2% and takes Metformin. He was also on an oral steroid for colitis, tapered down to the lowest dose now. We
discussed that the oral steroid will increase his glucose levels.
I educated on physiology of T2D, organ damage, managing with medications, monitoring BG, nutrition, activity, sleep and managing stress. I reinforced signs of hyperglycemia, hypoglycemia and hypoglycemia protocol; BS parameters and recommended HbA1c
goals, glucometer and CGM instructions, glucose tracker, medic alert bracelet and outpatient DSME program. Written material provided.
He is not checking glucose at home. I provided patient with a [employer] glucometer sample kit. Provided verbal instructions on proper blood sugar testing technique, and demonstration with patient�s participation. I educated and demonstrated
on insulin injection technique, timing, and storage. Discussed long and short acting insulin; onset/peak/duration, and encouraged her to administer his own injections with RN supervision while admitted. Discussed normal target glucose ranges and a
monitoring schedule 15 minutes before each meal when prescribed Novolog, and preprandial AM.
Encouraged patient to follow up with his PCP for post d/c appointment and to monitor medication and blood glucose levels. Requested a prescription for blood sugar testing supplies to be sent to his pharmacy on record. Patient verbalized
understanding.
[2025-03-08 11:57] LABS: Glucose - Point of Care 129 mg/dl (70-99)
--- NOTE | 2025-03-08 12:00 | WOUNDNOTE ---
[facility] RN note: Patient admitted with LLE cellulitis, LLE skin tears. Patient lives with .
See H&P for complete history.
PMH: CAD, DM, colitis, L knee replacement, cholecystectomy, former smoker, CKD3.
Wound Location and type/assessment: Patient admitted with: Dermal skin tears L lateral calf. Mild diffuse erythema LLE (improved as per Dr. Rowe). Trace LLE edema. Pedal pulses heard via portable Doppler. Patient sustained a small dermal skin
tear R lateral knee while getting out of bed during his stay here as per patient.
Appetite: good.
Pressure redistribution devices in place: [employer] Accum[employer]. Patient moves self in bed.
Plan: LLE dressing and RLE dressing changed. L knee high Milo reapplied. Confirmed with Dr. Yusuf frequency of wound care is daily. Discussed with LASHAWN Valdez. LASHAWN Ferreira assisted with wound care.
Care plan to be updated and will follow as needed.
Note to case management of equipment requested for discharge: VN recommended.
Recommend follow up at wound care center upon discharge.
[2025-03-08] MEDS: NOVOLOG FLEXPEN-LOW RESISTANCE SC (12:06)
--- NOTE | 2025-03-08 14:50 | W.PN.UPDATE ---
Update Note
Progress Note Update
89-year-old male with swelling of the left lower extremity. He also had fever and chills. Referred to ER by PCP. Patient stated that he banged his leg a few days ago to an iron door. He said got
Ultrasound-no sonographic evidence of DVT
RIMMA normal 06/16/2024
Patient is awake and alert
Cardiovascular system S1-S2 appreciated
Chest clear to auscultation
Abdomen soft and nontender
Left lower extremity - Pictures reviewed.
# Sepsis secondary to left lower extremity cellulitis
Ancef changed to Unasyn
Blood cultures GNR in one set ? Anaerobes.
White count is coming down
Milo bandages/compression therapy to the left leg
# Acute kidney injury on CKD stage III
Stop IV fluids and watch creatinine
Hold hydrochlorothiazide
# Anemia-iron deficiency noted. Repeat hemoglobin later today. Drop in hemoglobin likely secondary to hemodilution from IV fluids. Patient does have a history of anemia from before. He was advised to follow-up with his PCP for follow-up
# Hyponatremia-hold HCTZ, Hyponatremia resolved
# History of coronary artery akzghko-iouxbuyytxfgrf-katdexvi aspirin, statin
# Diabetes-type II-hemoglobin A1c- 7.3
restart metformin. Accu-Cheks and sliding scale coverage
# Hypertension-continue nifedipine. Hold HCTZ
# Hyperlipidemia-continue atorvastatin
# Lymphocytic colitis-continue budesonide
# Insomnia-continue melatonin mirtazapine
# Spinal canal stenosis and moderate right foraminal stenosis L3-L4 and L4-L5 anterolisthesis L5 on S1
# DVT prophylaxis-subcutaneous heparin
# DNR status
Wait for blood cultures to finalize prior to discharge
Part of this note was created using voice recognition system. Occasional wrong word or��sound alike� substitutions may have inadvertently occurred due to the inherent limitations of voice recognition software. If noted kindly bring it to my
attention for correction.
[2025-03-08 15:00] VITALS: BP 142/72
[2025-03-08 16:58] LABS: Glucose - Point of Care 163 mg/dl (70-99)
[2025-03-08] MEDS: NOVOLOG FLEXPEN-LOW RESISTANCE 1 UNITS SC (17:48)
[2025-03-08] MEDS: NOVOLOG FLEXPEN 2 UNITS SC (17:50)
[2025-03-08] MEDS: REMERON 15 MG PO (21:12)
[2025-03-08] MEDS: SENOKOT 17.2 MG PO (21:12)
[2025-03-08 21:54] LABS: Glucose - Point of Care 156 mg/dl (70-99)
[2025-03-08 23:20] VITALS: BP 124/59
[2025-03-09] MEDS: UNASYN IV ×2 (04:25→09:34)
[2025-03-09] MEDS: ASPIR LOW (ENTERIC COATED) 81 MG PO (07:43)
[2025-03-09] MEDS: NOVOLOG FLEXPEN-LOW RESISTANCE SC ×2 (07:43→11:28)
[2025-03-09 07:44] LABS: Glucose - Point of Care 121 mg/dl (70-99)
[2025-03-09] MEDS: ENTOCORT EC 3 MG PO (07:44)
[2025-03-09] MEDS: HEPARIN 5000 UNITS SC (07:44)
[2025-03-09] MEDS: LIPITOR 40 MG PO (07:44)
[2025-03-09] MEDS: VITAMIN B-12 1000 MCG PO (07:44)
[2025-03-09] MEDS: DETROL 1 MG PO (07:44)
[2025-03-09] MEDS: MIRALAX PO (07:45)
[2025-03-09] MEDS: GLUCOPHAGE 1000 MG PO (07:46)
[2025-03-09] MEDS: SENOKOT 17.2 MG PO (07:47)
[2025-03-09] MEDS: PROCARDIA XL (EXTENDED RELEASE) 30 MG PO (07:47)
[2025-03-09] MEDS: NOVOLOG FLEXPEN 2 UNITS SC ×2 (07:47→12:52)
[2025-03-09 08:10] VITALS: BP 154/76
[2025-03-09 11:28] LABS: Glucose - Point of Care 140 mg/dl (70-99)
--- NOTE | 2025-03-09 15:07 | W.PN.UPDATE ---
Update Note
Progress Note Update
seen and examined with resident . Plan formulated together.
89-year-old male with a PMH notable for DM, HTN, CAD, HLD, and lymphocytic colitis, who presented with erythematous swelling of the left lower extremity after hitting it on an iron door a few days prior. He also had fever and chills. Referred to
ER by PCP. Ultrasound demonstrated no evidence of DVT. RIMMA normal 06/16/2024.
Patient is awake and alert
Cardiovascular system S1-S2 appreciated
Chest clear to auscultation
Abdomen soft and nontender
Left lower extremity - skin laceration without any discharge. Redness in the leg much better.
# Sepsis secondary to left lower extremity cellulitis
Switched from cefazolin to ampicillin per sulbactam for better anaerobic coverage
1 set of blood cultures positive for gram-negative bacilli, likely an anaerobe
Milo bandages/compression therapy to the left leg discussed with the patient
Augmentin for 1 week for discharge
# Acute kidney injury on CKD stage III
Resolved. Restarted metformin
Hold hydrochlorothiazide
# Anemia-stable hemoglobin patient does have a history of anemia. He was advised to follow-up with his PCP
# Hyponatremia-hold HCTZ, resolved. Will not discharge on hydrochlorothiazide
# History of coronary artery ljsgtsl-lptywkkvgmmowq-hjfrjnqq aspirin, statin
# Diabetes-type II-hemoglobin A1c- 7.3
- restarted metformin. Accu-Cheks and sliding scale coverage
-will be discharged with Contour Next Gen test strips and Microlet lancets
# Hypertension-continue nifedipine. Hold HCTZ
# Hyperlipidemia-continue atorvastatin
# Lymphocytic colitis-continue budesonide
# Insomnia-continue melatonin mirtazapine
# Spinal canal stenosis and moderate right foraminal stenosis L3-L4 and L4-L5 anterolisthesis L5 on S1
# DVT prophylaxis-subcutaneous heparin
# DNR status
Discussed with microbiology lab. Likely an anaerobe in the culture but not able to grow in the culture.
Instructions at discharge discussed with the patient
discharge time over 30 min
[2025-03-09 15:37] VITALS: BP 139/69
--- NOTE | 2025-03-09 16:03 | CM ---
MD entered order for discharge.
Spoke with patient in room .
Offered VN he requested [facility] Liaison [place] notified.
Family will drive him home.
IMM reviewed signed on chart.
PLAN Home with [facility] wound care
--- NOTE | 2025-03-09 16:04 | VNURNOTE ---
Home Health Liaison met with patient, spouse, son at bedside to discuss [facility] nurse/therapy, visits, schedule and homebound status. Patient is agreeable and understands that visits at home will be 2-3 x per week to assess and teach medical
management. Patient is aware that [facility] will contact them for start of care in 1-2 days after discharge from . Provided contact number for [facility].
[facility] referral completed in [facility].
--- NOTE | 2025-03-10 15:36 | W.DCSUMMARY ---
Discharge Summary
Discharge Data
Date of Admission: 03/05/25
Date of Discharge: 03/10/25
Total time spent discharging patient (in min): 35
-
Pending Results: No
Hospital Course
Patient is an 89 y/o male past medical history of CAD, DM, HTN, Lymphocytic Colitis, and Insomnia who presents with increased redness and swelling of the left lower extremity.� Patient reports he has very thin/frail skin and he bumped is leg a few
weeks ago causing a wound.� Patient reports about 3-4 days ago the leg started getting more red and swollen. He has been experiencing chills and this morning had a fever of 101F.���
No DVT on peripheral vascular ultrasound. He also got a lumbar spine x-ray and MRI due to radicular pain to his right leg. Degenerative changes demonstrated on lumbar imaging.�
He also had an ANGELIQUE, which resolved with IV fluids and holding metformin and hydrochlorothiazide. His creatinine returned to his baseline 1.2-1.3. Metformin was restarted.�
One set of blood cultures was positive for anaerobic gram-negative bacilli.
Changed ancef to unasyn for better anaerobic coverage. Discharged on oral Augmentin. WBC count downtrended to normal.�
Discharge Plan
-
Patient Disposition: Home (Routine Discharge)
Discharge Diagnosis/Procedures: Sepsis secondary to left lower extremity cellulitis
Diabetes
Acute kidney injury
Anemia
Low sodium
Coronary artery disease
High cholesterol
Lymphocytic colitis
Hypertension
Condition: Good
Diet: Diabetic, Carb Controlled
Activity: As tolerated
Driving Restrictions: Not until seen by your Dr
Bathing Restrictions: None
Other Services: VN
Activity Restrictions/Additional Instructions:
Wound Care Instructions
LLE-Clean with saline, pat dry, Adaptic with gauze and Klever wrap. Do not make it too tight. Milo bandage to be wrapped starting just above the toes with in between all the way up to the knee. May need a bigger size sock.
Change dressing daily and as needed for drainage.
R lateral knee skin tear-clean with saline, adaptic, silicone border foam, change every 3 days and as needed for drainage.
Elevate heels off bed with pillow/s.
Follow up at wound care center call for an appointment.
Instructions: Taking care of cuts, scrapes, and puncture wounds
Referrals:
Gaby Hernandez DO [Family Provider, [facility]] - in less than 1 week
Additional Discharge Medication Instructions: Hydrochlorothiazide was originally held due to low sodium.
Continue 6 additional days at discharge with Augmentin 875/125 BID.
Prescriptions:
New
cyanocobalamin (vitamin B-12) [Vitamin B-12] 500 mcg Tablet
1,000 mcg PO DAILY Qty: 30 0RF
amoxicillin-pot clavulanate 875-125 mg tablet
1 tab PO BID Qty: 12 0RF
(DME) lancets-blood glucose strips 32 gauge kit
See Rx Instructions .Route Qty: 300 0RF
Rx Instructions:
As directed
Continued
atorvastatin [Lipitor] 40 mg Tablet
40 mg PO DAILY
metformin 500 mg Tablet
1,000 mg PO BID@0800,1700
therapeutic multivitamin Tablet
1 tab PO DAILY
aspirin 81 mg Tablet,Delayed Release (Dr/Ec)
81 mg PO DAILY
melatonin 5 mg Tablet
10 mg PO HSPRN PRN (Reason: SLEEP)
nifedipine 30 mg Tablet Extended Release 24hr
30 mg PO DAILY
budesonide 3 mg Capsule,Delayed,Extend.Release
3 mg PO DAILY
trospium 20 mg Tablet
20 mg PO BID
cholecalciferol (vitamin D3) [Vitamin D3] 125 mcg (5,000 unit) Tablet
125 mcg PO DAILY
magnesium citrate 125 mg Capsule
250 mg PO HS
mirtazapine 15 mg Tablet
15 mg PO HS
Discontinued
hydrochlorothiazide 12.5 mg Tablet
12.5 mg PO DAILY
Discharge Orders:
Discharge Patient (As Directed); Ordered 03/09/25
Ordered By: Janie Rowe
Discharge Date and Time
Discharge Date/Time: 03/09/25 17:11
Print Language: BULGARIAN
== END 2025-03-09 17:11 | disposition home health service (06) | DRG 872 ==
LOC: 3 WEST ACU 17:47
PROVIDERS: Physician Assistant Medical; ADMITTING PHYSICIAN Hospitalist; ATTENDING PHYSICIAN Hospitalist; EMERGENCY PHYSICIAN Emergency Medicine; FAMILY PHYSICIAN Family Medicine
DX: A41.9 Sepsis, unspecified organism (principal); L03.116 Cellulitis of left lower limb; N17.9 Acute kidney failure, unspecified; E87.1 Hypo-osmolality and hyponatremia; I25.10 Atherosclerotic heart disease of native coronary artery without angina pectoris; E78.00 Pure hypercholesterolemia, unspecified; K52.832 Lymphocytic colitis; G47.00 Insomnia, unspecified; I12.9 Hypertensive chronic kidney disease with stage 1 through stage 4 chronic kidney disease, or unspecified chronic kidney disease; D72.829 Elevated white blood cell count, unspecified; N32.81 Overactive bladder; E11.22 Type 2 diabetes mellitus with diabetic chronic kidney disease; Z66 Do not resuscitate; N18.30 Chronic kidney disease, stage 3 unspecified; M48.061 Spinal stenosis, lumbar region without neurogenic claudication; D64.9 Anemia, unspecified; K52.9 Noninfective gastroenteritis and colitis, unspecified; M54.10 Radiculopathy, site unspecified; Z96.652 Presence of left artificial knee joint; Z87.891 Personal history of nicotine dependence; Z79.899 Other long term (current) drug therapy
CPT/HCPCS: 80048; 80053; 81003; 81015; 82607; 82728; 82962; 83036; 83540; 83550; 83605; 85014; 85018; 85025; 85027; 87040; 87205; 93005; 93971; 96365; 96366; 97161; 99285

== ENCOUNTER → 2025-03-22 08:09 | Outpatient (REF) | payer MEDICARE, OTHER, SELFPAY ==
[2025-03-22 10:07] LABS: Hematocrit 35.2 % (39.0-52.0); Hemoglobin 11.4 g/dL (13.0-18.0); Mean Corp Hgb Conc. 32.4 g/dL (33.0-37.0); Mean Corpuscular Volume 91.9 fL (80.0-94.0); Nucleated Red Blood Cells % 0 % (-); Platelet Count 421 10^3/uL (130-400); Red Cell Dist. Width 13.3 % (11.5-14.5)
[2025-03-22 10:13] LABS: ALT (SGPT) 20 U/L (0-50); AST (SGOT) 23 U/L (17-59); Albumin 4.3 g/dl (3.5-5.0); Alkaline Phosphatase 96 U/L (38-126); Blood Urea Nitrogen 27 mg/dl (9-20); Calcium 9.4 mg/dl (8.4-10.2); Carbon Dioxide 25 mmol/L (22-30); Chloride 103 mmol/L (98-107); Glucose 145 mg/dl (70-99); Potassium 4.6 mmol/L (3.5-5.1); Sodium 137 mmol/L (135-145); Total Protein 7.2 g/dl (6.3-8.2); eGFR 48.04
== END ==
LOC: HWLAB 08:09
PROVIDERS: ATTENDING PHYSICIAN Internal Medicine
DX: E11.22 Type 2 diabetes mellitus with diabetic chronic kidney disease (principal); I10 Essential (primary) hypertension; I25.10 Atherosclerotic heart disease of native coronary artery without angina pectoris; N18.32 Chronic kidney disease, stage 3b; D64.9 Anemia, unspecified; E66.09 Other obesity due to excess calories; Z68.30 Body mass index [BMI] 30.0-30.9, adult; F51.01 Primary insomnia; E78.2 Mixed hyperlipidemia
CPT/HCPCS: 36415; 80053; 85025